=== PATIENT | female | born 1930 | race Caucasian/White ===

== ENCOUNTER → 2016-04-24 | Outpatient (REF) | payer MEDICARE, MEDICAID ==
[~2016-04-24] MED LIST: BISO10TA6 PO; CARA1TAB2 PO; DUONSOL NEB; FURO40TA2 PO; MIRA255PW PO; MOM30SS PO; OMEP10CA PO; PRED10TA2 PO; PRED20TA PO; ULTR50TA PO; VITAMIN D PO
== END ==
LOC: M SFHCADAM 12:17
PROVIDERS: ATTEND Physician Assistant
DX: Z53.8 Procedure and treatment not carried out for other reasons (principal); R07.9 Chest pain, unspecified

== ENCOUNTER → 2016-04-25 | Outpatient (REF) | payer MEDICARE, MEDICAID ==
[2016-04-25 12:33] LABS: MEAN CORPUSCULAR HEMOGLOBIN 29.9 pg (27.0-33.0); MEAN CORPUSCULAR HGB CONC 33.9 g/dl (32.0-36.5); MEAN CORPUSCULAR VOLUME 88.2 fl (80.0-96.0); RED CELL DISTRIBUTION WIDTH 12.5 % (11.5-14.5); WHITE BLOOD COUNT 4.1 K/mm3 (4.0-10.0)
[2016-04-25 12:41] LABS: ALBUMIN/GLOBULIN RATIO 0.91 (1.00-1.93); BILIRUBIN,TOTAL 0.3 MG/DL (0.2-1.0); CALCIUM LEVEL 8.3 MG/DL (8.8-10.2); CREATININE FOR GFR 1.19 MG/DL (0.55-1.02); GLOMERULAR FILTRATION RATE 45.7 (>32); POTASSIUM SERUM 3.6 MEQ/L (3.5-5.1); TOTAL PROTEIN 6.3 GM/DL (6.4-8.2)
== END ==
LOC: M SFHCADAM 10:00
PROVIDERS: ATTEND Physician Assistant
DX: R07.9 Chest pain, unspecified (principal)

== ENCOUNTER → 2016-07-05 | Outpatient (REF) | payer MEDICARE, MEDICAID | LOC: M SFHCADAM 20:32 | PROVIDERS: ATTEND Family Medicine | DX: R35.0 Frequency of micturition (principal) | CPT/HCPCS: 81002; 87088; 87186; 93005; G0463 ==

== ENCOUNTER → 2016-07-24 | Outpatient (REF) | payer MEDICARE, MEDICAID | LOC: M SFHCADAM 16:20 | PROVIDERS: ATTEND Physician Assistant | DX: N39.0 Urinary tract infection, site not specified (principal); B96.20 Unspecified Escherichia coli [E. coli] as the cause of diseases classified elsewhere | CPT/HCPCS: 87086; G0463 ==

== ENCOUNTER → 2016-11-05 | Outpatient (REF) | payer MEDICARE, MEDICAID ==
[2016-11-06 12:23] LABS: MEAN CORPUSCULAR HEMOGLOBIN 28.6 pg (27.0-33.0); MEAN CORPUSCULAR HGB CONC 31.6 g/dl (32.0-36.5); MEAN CORPUSCULAR VOLUME 90.5 fl (80.0-96.0); RED CELL DISTRIBUTION WIDTH 12.7 % (11.5-14.5); WHITE BLOOD COUNT 6.1 K/mm3 (4.0-10.0)
[2016-11-06 12:45] LABS: ALBUMIN 2.9 GM/DL (3.2-5.2); ALBUMIN/GLOBULIN RATIO 0.81 (1.00-1.93); BILIRUBIN,TOTAL 0.5 MG/DL (0.2-1.0); CALCIUM LEVEL 9.1 MG/DL (8.8-10.2); CREATININE FOR GFR 0.97 MG/DL (0.55-1.02); GLOMERULAR FILTRATION RATE 57.7 (>32); TOTAL PROTEIN 6.5 GM/DL (6.4-8.2)
== END ==
LOC: M SFHCADAM 11:28
PROVIDERS: ATTEND Physician Assistant
DX: I50.32 Chronic diastolic (congestive) heart failure (principal); N18.2 Chronic kidney disease, stage 2 (mild)

== ENCOUNTER 2017-03-04 15:55 | Inpatient (IN) | payer MEDICARE, MEDICAID ==
[2017-03-04 18:04] LABS: BEDSIDE GLUCOSE 143 MG/DL (83-110)
[2017-03-04] MEDS: NS 1,000 ML IV ×2 (18:05→21:54)
[2017-03-04 18:33] LABS: VENOUS BASE EXCESS 18.7 (-2.0-2.0); VENOUS O2 SATURATION 99.4 % (60.0-80.0); VENOUS PARTIAL PRESSURE CO2 68.8 mmHg (38.0-50.0); VENOUS PARTIAL PRESSURE O2 174.2 mmHg (30.0-50.0); VENOUS PH 7.443 UNITS (7.330-7.430); VENOUS STANDARD HCO3 42.9 MEQ/L; VENOUS TOTAL CO2 48.1 MEQ/L (24.0-28.0)
[2017-03-04 18:35] LABS: BASO % 0.4 % (0.0-1.0); EOS % 0.2 % (0.0-3.0); HEMATOCRIT 30.4 % (36.0-47.0); HEMOGLOBIN 10.1 g/dl (12.0-16.0); IMMATURE GRANULOCYTE % 0.4 % (0-0); LYMPH # 0.7 10^3/uL (1.5-4.5); LYMPH % 13.5 % (24.0-44.0); MEAN CORPUSCULAR HEMOGLOBIN 29.3 pg (27.0-33.0); MEAN CORPUSCULAR HGB CONC 33.2 g/dl (32.0-36.5); MEAN CORPUSCULAR VOLUME 88.1 fl (80.0-96.0); MONO # 0.4 10^3/uL (0.0-0.8); MONO % 7.1 % (0.0-5.0); NEUTROPHILS # 4.3 10^3/uL (1.8-7.7); NEUTROPHILS % 78.4 % (36.0-66.0); PLATELET COUNT, AUTOMATED 165 10^3/uL (150-450); RED BLOOD COUNT 3.45 10^6/uL (4.00-5.40); RED CELL DISTRIBUTION WIDTH 12.5 % (11.5-14.5); WHITE BLOOD COUNT 5.5 10^3/uL (4.0-10.0)
[2017-03-04 19:05] LABS: LACTIC ACID SEPSIS PROTOCOL 0.9 MMOL/L (0.4-2.0)
[2017-03-04 19:08] LABS: ACETAMINOPHEN LEVEL < 2.0 UG/ML (10.0-30.0); ALBUMIN 2.9 GM/DL (3.2-5.2); ALBUMIN/GLOBULIN RATIO 0.83 (1.00-1.93); ALKALINE PHOSPHATASE 47 U/L (45-117); ALT/SGPT 16 U/L (12-78); ANION GAP 5 MEQ/L (8-16); AST/SGOT 31 U/L (7-37); BILIRUBIN,DIRECT 0.1 MG/DL (0.0-0.2); BILIRUBIN,TOTAL 0.4 MG/DL (0.2-1.0); BLOOD UREA NITROGEN 7 MG/DL (7-18); CALCIUM LEVEL 8.5 MG/DL (8.8-10.2); CARBON DIOXIDE LEVEL 43 MEQ/L (21-32); CHLORIDE LEVEL 81 MEQ/L (98-107); CPK CREATINE PHOSPHOKINASE 87 U/L (26-192); CREATININE FOR GFR 0.68 MG/DL (0.55-1.02); GLOMERULAR FILTRATION RATE > 60.0 (>32); GLUCOSE, FASTING 118 MG/DL (83-110); POTASSIUM SERUM 4.1 MEQ/L (3.5-5.1); SALICYLATE LEVEL < 1.7 MG/DL (5.0-30.0); SODIUM LEVEL 129 MEQ/L (136-145); TOTAL PROTEIN 6.4 GM/DL (6.4-8.2); TROPONIN I 0.18 NG/ML (< 0.10)
[2017-03-04 19:13] LABS: CK-MB VALUE MASS 1.8 NG/ML (0.0-3.6); MB/CK RELATIVE INDEX 2.06 (< OR =4)
[2017-03-04 20:24] LABS: KETONE, URINE AUTO RFX NEGATIVE (NEGATIVE); LEUKOCYTE ESTERASE UR AUTO RFX NEGATIVE (NEGATIVE); MUCUS, URINE RFX SMALL (NEGATIVE); NITRITE, URINE AUTO RFX NEGATIVE (NEGATIVE); RBC, URINE AUTO RFX 1 /HPF (0-3); SPECIFIC GRAVITY UR AUTO RFX 1.008 (1.002-1.035); SQUAM EPITHELIAL CELL UR AURFX 1 /HPF (0-6); WBC, URINE AUTO RFX 1 /HPF (0-3)
[2017-03-04] MEDS: OMEPRAZOLE 20 MG CAP PO (23:23)
[2017-03-04] MEDS: SODIUM CHLORIDE 0.9% 1000 ML IV (23:27)
[2017-03-05 02:45] LABS: CK-MB VALUE MASS 2.5 NG/ML (0.0-3.6); CPK CREATINE PHOSPHOKINASE 66 U/L (26-192); MB/CK RELATIVE INDEX 3.78 (< OR =4); TROPONIN I 0.57 NG/ML (< 0.10)
[2017-03-05] MEDS ORDERED: ACETAMINOPHEN TAB 650MG DOSE (2X325MG) PO (05:30)
[2017-03-05] MEDS ORDERED: ASPIRIN 81 MG CHEW TABLET PO (05:45)
[2017-03-05] MEDS ORDERED: ACETAMINOPHEN 650 MG SUPP PR (05:45)
[2017-03-05] MEDS: SODIUM CHLORIDE 0.9% 1000 ML IV (06:00)
[2017-03-05] MEDS: ASPIRIN 300 MG SUPP PR (06:24)
[2017-03-05 07:16] LABS: BASO % 0.3 % (0.0-1.0); EOS % 0.6 % (0.0-3.0); HEMATOCRIT 27.4 % (36.0-47.0); HEMOGLOBIN 8.5 g/dl (12.0-16.0); IMMATURE GRANULOCYTE % 0.3 % (0-0); LYMPH % 27.5 % (24.0-44.0); MEAN CORPUSCULAR HEMOGLOBIN 28.6 pg (27.0-33.0); MEAN CORPUSCULAR VOLUME 92.3 fl (80.0-96.0); MONO # 0.4 10^3/uL (0.0-0.8); MONO % 12.3 % (0.0-5.0); NEUTROPHILS # 2.1 10^3/uL (1.8-7.7); PLATELET COUNT, AUTOMATED 132 10^3/uL (150-450); RED BLOOD COUNT 2.97 10^6/uL (4.00-5.40); RED CELL DISTRIBUTION WIDTH 12.8 % (11.5-14.5); WHITE BLOOD COUNT 3.6 10^3/uL (4.0-10.0)
[2017-03-05 07:37] LABS: ANION GAP 6 MEQ/L (8-16); BLOOD UREA NITROGEN 7 MG/DL (7-18); CARBON DIOXIDE LEVEL 36 MEQ/L (21-32); CHLORIDE LEVEL 94 MEQ/L (98-107); CREATININE FOR GFR 0.57 MG/DL (0.55-1.02); GLOMERULAR FILTRATION RATE > 60.0 (>32); GLUCOSE, FASTING 75 MG/DL (83-110); POTASSIUM SERUM 3.5 MEQ/L (3.5-5.1); SODIUM LEVEL 136 MEQ/L (136-145)
[2017-03-05] MEDS: ALBUTEROL SULFATE 2.5 MG/0.5 ML INH NEB SOLN INH ×3 (08:36→21:17)
[2017-03-05] MEDS: MIRALAX *UNIT DOSE* 17GM PACKET PO (09:00)
[2017-03-05] MEDS: ENOXAPARIN 30 MG/0.3 ML SYR (J1650) SC (09:00)
[2017-03-05] MEDS: OMEPRAZOLE 20 MG CAP PO ×2 (09:12→20:29)
[2017-03-05] MEDS: VITAMIN D 1,000 INTERNATIONAL UNITS TABLET PO (09:12)
[2017-03-05] MEDS ORDERED: NS 1,000 ML IV (13:00)
[2017-03-06] MEDS: ALBUTEROL SULFATE 2.5 MG/0.5 ML INH NEB SOLN INH ×3 (07:37→21:12)
[2017-03-06] MEDS: OMEPRAZOLE 20 MG CAP PO ×2 (08:55→20:56)
[2017-03-06] MEDS: ENOXAPARIN 30 MG/0.3 ML SYR (J1650) SC (08:55)
[2017-03-06] MEDS: ASPIRIN 325 MG TAB PO (08:55)
[2017-03-06] MEDS: VITAMIN D 1,000 INTERNATIONAL UNITS TABLET PO (08:55)
[2017-03-06] MEDS: MIRALAX *UNIT DOSE* 17GM PACKET PO (08:55)
[2017-03-07 07:08] LABS: ANION GAP 6 MEQ/L (8-16); BLOOD UREA NITROGEN 16 MG/DL (7-18); CALCIUM LEVEL 8.5 MG/DL (8.8-10.2); CARBON DIOXIDE LEVEL 35 MEQ/L (21-32); CHLORIDE LEVEL 93 MEQ/L (98-107); CREATININE FOR GFR 0.98 MG/DL (0.55-1.02); GLUCOSE, FASTING 106 MG/DL (83-110); POTASSIUM SERUM 4.4 MEQ/L (3.5-5.1); SODIUM LEVEL 134 MEQ/L (136-145)
[2017-03-07] MEDS: ALBUTEROL SULFATE 2.5 MG/0.5 ML INH NEB SOLN INH ×3 (07:23→19:30)
[2017-03-07] MEDS: OMEPRAZOLE 20 MG CAP PO ×2 (09:19→20:05)
[2017-03-07] MEDS: VITAMIN D 1,000 INTERNATIONAL UNITS TABLET PO (09:19)
[2017-03-07] MEDS: ASPIRIN 325 MG TAB PO (09:19)
[2017-03-07] MEDS: MIRALAX *UNIT DOSE* 17GM PACKET PO (09:19)
[2017-03-07] MEDS: ENOXAPARIN 30 MG/0.3 ML SYR (J1650) SC (09:19)
[2017-03-08] MEDS: ALBUTEROL SULFATE 2.5 MG/0.5 ML INH NEB SOLN INH ×3 (07:11→20:05)
[2017-03-08] MEDS: MIRALAX *UNIT DOSE* 17GM PACKET PO (09:21)
[2017-03-08] MEDS: ENOXAPARIN 30 MG/0.3 ML SYR (J1650) SC (09:21)
[2017-03-08] MEDS: VITAMIN D 1,000 INTERNATIONAL UNITS TABLET PO (09:21)
[2017-03-08] MEDS: ASPIRIN 325 MG TAB PO (09:21)
[2017-03-08] MEDS: OMEPRAZOLE 20 MG CAP PO ×3 (09:22→21:00)
[2017-03-09] MEDS: ALBUTEROL SULFATE 2.5 MG/0.5 ML INH NEB SOLN INH ×3 (07:21→19:29)
[2017-03-09] MEDS: OMEPRAZOLE 20 MG CAP PO ×2 (09:50→21:00)
[2017-03-09] MEDS: MIRALAX *UNIT DOSE* 17GM PACKET PO (09:50)
[2017-03-09] MEDS: ENOXAPARIN 30 MG/0.3 ML SYR (J1650) SC (09:50)
[2017-03-09] MEDS: VITAMIN D 1,000 INTERNATIONAL UNITS TABLET PO (09:50)
[2017-03-09] MEDS: ASPIRIN 325 MG TAB PO (09:50)
[2017-03-09] MEDS: ACETAMINOPHEN TAB 650MG DOSE (2X325MG) PO (14:57)
[2017-03-10] MEDS: ALBUTEROL SULFATE 2.5 MG/0.5 ML INH NEB SOLN INH ×3 (08:00→22:17)
[2017-03-10] MEDS: MIRALAX *UNIT DOSE* 17GM PACKET PO (09:00)
[2017-03-10] MEDS: ASPIRIN 325 MG TAB PO (09:00)
[2017-03-10] MEDS: OMEPRAZOLE 20 MG CAP PO ×2 (09:00→20:05)
[2017-03-10] MEDS: VITAMIN D 1,000 INTERNATIONAL UNITS TABLET PO (09:00)
[2017-03-10 14:08] LABS: BASO % 0.2 % (0.0-1.0); HEMATOCRIT 35.8 % (36.0-47.0); HEMOGLOBIN 10.8 g/dl (12.0-16.0); IMMATURE GRANULOCYTE # 0.2 10^3/uL (0-0); IMMATURE GRANULOCYTE % 2.6 % (0-0); LYMPH # 0.4 10^3/uL (1.5-4.5); LYMPH % 6.1 % (24.0-44.0); MEAN CORPUSCULAR HGB CONC 30.2 g/dl (32.0-36.5); MEAN CORPUSCULAR VOLUME 96.2 fl (80.0-96.0); MONO # 0.4 10^3/uL (0.0-0.8); MONO % 6.4 % (0.0-5.0); NEUTROPHILS # 5.1 10^3/uL (1.8-7.7); NEUTROPHILS % 84.7 % (36.0-66.0); PLATELET COUNT, AUTOMATED 141 10^3/uL (150-450); RED BLOOD COUNT 3.72 10^6/uL (4.00-5.40); RED CELL DISTRIBUTION WIDTH 12.8 % (11.5-14.5); WHITE BLOOD COUNT 6.1 10^3/uL (4.0-10.0)
[2017-03-10 14:36] LABS: ALBUMIN 2.8 GM/DL (3.2-5.2); ALBUMIN/GLOBULIN RATIO 0.68 (1.00-1.93); ALKALINE PHOSPHATASE 76 U/L (45-117); ALT/SGPT 135 U/L (12-78); ANION GAP 0 MEQ/L (8-16); AST/SGOT 261 U/L (7-37); BILIRUBIN,TOTAL 0.9 MG/DL (0.2-1.0); BLOOD UREA NITROGEN 33 MG/DL (7-18); CALCIUM LEVEL 9.8 MG/DL (8.8-10.2); CARBON DIOXIDE LEVEL 41 MEQ/L (21-32); CHLORIDE LEVEL 95 MEQ/L (98-107); GLOMERULAR FILTRATION RATE 49.9 (>32); GLUCOSE, FASTING 84 MG/DL (83-110); SODIUM LEVEL 136 MEQ/L (136-145); TOTAL PROTEIN 6.9 GM/DL (6.4-8.2)
[2017-03-10 15:03] LABS: POTASSIUM SERUM 6.2 MEQ/L (3.5-5.1)
[2017-03-10] MEDS: NS 1,000 ML IV (15:30)
[2017-03-10] MEDS: SOD POLYSTYRENE SULFONATE SUSP 30 GM/120 ML ENEMA PR (16:00)
[2017-03-10] MEDS: SCOPOLAMINE 1MG TRANSDERMAL PATCH TOP (17:33)
[2017-03-10] MEDS ORDERED: MORPHINE 10MG/0.5ML ORAL CONCENTRATE SOLUTION U/D SL (23:30)
[2017-03-11] MEDS: ALBUTEROL SULFATE 2.5 MG/0.5 ML INH NEB SOLN INH (07:04)
== END 2017-03-10 23:45 | disposition expired | DRG 641 ==
LOC: M MSPAV 03-05 14:10 → M ED 15:55 → M ED INP 20:45 → M MS4PR 23:55
PROVIDERS: Internal Medicine
DX: R62.7 Adult failure to thrive (principal); E46 Unspecified protein-calorie malnutrition; I50.32 Chronic diastolic (congestive) heart failure; E87.1 Hypo-osmolality and hyponatremia; R64 Cachexia; K21.9 Gastro-esophageal reflux disease without esophagitis; J98.4 Other disorders of lung; E55.9 Vitamin D deficiency, unspecified; E86.0 Dehydration; R53.1 Weakness; Z51.5 Encounter for palliative care; Z66 Do not resuscitate; I11.0 Hypertensive heart disease with heart failure; I27.20 Pulmonary hypertension, unspecified; M54.5 Low back pain; E78.5 Hyperlipidemia, unspecified; K44.9 Diaphragmatic hernia without obstruction or gangrene; M50.30 Other cervical disc degeneration, unspecified cervical region; Z79.899 Other long term (current) drug therapy; Z88.6 Allergy status to analgesic agent; Z88.8 Allergy status to other drugs, medicaments and biological substances